=== PATIENT | female | born 1950 | race Caucasian/White ===

== ENCOUNTER 2017-04-04 22:52 | Emergency (ER) | payer OTHER, BC ==
[~2017-04-04] VITALS: Ht 160 cm; Wt 61.1 kg
[2017-04-05] MEDS ORDERED: CIPROFLOXACIN H10 ML RIGHT EYE (00:10)
[2017-04-05 00:22] VITALS: BP 144/78
== END 2017-04-05 00:23 | disposition home or self-care (01) ==
LOC: EME 22:52
DX: H10.9 Unspecified conjunctivitis (principal); I10 Essential (primary) hypertension; H40.9 Unspecified glaucoma; Z98.890 Other specified postprocedural states; Z85.9 Personal history of malignant neoplasm, unspecified
CPT/HCPCS: 99281; 99284

== ENCOUNTER 2017-04-25 12:02 | Day surgery (SDC) | payer OTHER, BC ==
[~2017-04-25] VITALS: Ht 160 cm; Wt 54.4 kg
[~2017-04-25 12:02] MED LIST: ASPIR-LOW81 MG PO; CALCIUM WITH M1 EAC2 PO; CIPROFLOXACIN H10 ML RIGHT EYE; DORZOLAMIDE HCL10 ML LEFT EYE; FLUDROCORTISON0.1 M1 PO; LATANOPROST2.5 ML LEFT EYE; MIMVEY 1-0.5 M1 EACH PO; MULTIVITAMIN1 EAC2 PO; OMEGA 3 500 SO1 EACH PO; RESTASIS MULTI5.5 ML LEFT EYE; VITAMIN D2000 UNIT PO; VITAMIN E400 UNIT PO
[2017-04-25] MEDS ORDERED: FLECAINIDE ACET50 MG PO (12:22)
[2017-04-25] MEDS ORDERED: ELIQUIS5 MG PO (12:22)
[2017-04-25] MEDS ORDERED: ADDERALL5 MG PO (12:23)
[2017-04-25] MEDS ORDERED: TOBRAMYCIN SULFA5 ML RIGHT EYE (14:10)
[2017-04-25] MEDS ORDERED: PRED FORTE100 DROP/5 RIGHT EYE (14:12)
== END 2017-04-25 14:35 | disposition home or self-care (01) ==
LOC: CATH 12:02
PROC: 5A2204Z Restoration of Cardiac Rhythm, Single (ICD-10-PCS; principal; 2017-04-25)
DX: I48.0 Paroxysmal atrial fibrillation (principal); Z79.82 Long term (current) use of aspirin; I95.9 Hypotension, unspecified
CPT/HCPCS: 93005

== ENCOUNTER → 2017-06-04 | Outpatient (CLI) | payer OTHER, BC ==
[~2017-06-04] MED LIST changes: +ADDERALL5 MG PO; +ELIQUIS5 MG PO; +FLECAINIDE ACET50 MG PO; +PRED FORTE100 DROP/5 RIGHT EYE; +TOBRAMYCIN SULFA5 ML RIGHT EYE
== END | disposition home or self-care (01) ==
LOC: RAD 13:00
DX: Z01.810 Encounter for preprocedural cardiovascular examination (principal); I48.0 Paroxysmal atrial fibrillation; R93.1 Abnormal findings on diagnostic imaging of heart and coronary circulation
CPT/HCPCS: 75574